=== PATIENT | male | born 2000 | race Caucasian/White ===

== ENCOUNTER 2021-12-26 19:56 | Emergency (ER) | payer BC ==
[2021-12-26] MEDS ORDERED: Ketorolac Tromethamine 30 MG/ML VIAL ONE (21:32)
[2021-12-26] MEDS ORDERED: Metoclopramide HCl 10 MG TAB ONE (21:49)
== END 2021-12-26 22:01 | disposition home or self-care (01) ==
LOC: ERS 19:56
DX: S06.0X0A Concussion without loss of consciousness, initial encounter (principal); V43.62XA Car passenger injured in collision with other type car in traffic accident, initial encounter; Z79.899 Other long term (current) drug therapy
CPT/HCPCS: 96372; 99283; J1885